=== PATIENT | male | born 1985 | race Caucasian/White ===

== ENCOUNTER 2017-10-02 14:20 | Inpatient (IN) ==
[2017-10-02] MEDS ORDERED: PANTOPRAZOLE 40 MG VIAL IV STA (15:01)
[2017-10-02 15:30] LABS: Basophils # 0.1 10*3/uL (0.0-0.2); Basophils % 0.9 % (0.0-0.8); Eosinophils # 0.1 10*3/uL (0.0-0.87); Eosinophils % 1.3 % (0.00-10.9); Hematocrit 43.9 VOL% (42.0-52.0); Hemoglobin 14.8 GM/DL (14.0-18.0); Immature Granulocytes % 0.2 %; Immature Granulocytes Absolute 0.02 #; Lymphocytes # 2.7 10*3/uL (1.4-4.0); Lymphocytes % 27.4 % (21.2-54.2); Mean Corpuscular HGB Conc 33.7 GM/DL (32-36); Mean Corpuscular Hemoglobin 34 PG (27-34); Mean Platelet Volume 10.3 FL (9.6-12.0); Monocytes # 0.6 10*3/uL (0.11-0.8); Monocytes % 5.8 % (1.7-12.7); Neutrophils # 6.3 10*3/uL (1.4-7.4); Neutrophils % 64.4 % (38.7-73.9); Platelet Count 252 T/CUMM (130-400); Red Blood Count 4.39 MC/CUMM (3.8-5.5); Red Cell Distribution Width 13.5 % (9.3-17.3); White Blood Count 9.7 T/CUMM (4-12)
[2017-10-02 15:47] LABS: Alanine Aminotransferase 30 U/L (16-61); Albumin 3.3 G/DL (3.4-5.0); Alkaline Phosphatase 69 U/L (45-117); Aspartate Amino Transferase 25 U/L (0-37); Bilirubin,Total < 0.39 MG/DL (0.2-1.0); Blood Urea Nitrogen 11 MG/DL (7-18); Calcium 8.9 MG/DL (8.5-10.1); Glucose 127 MG/DL (74-106); Osmolality,Calculated 277.5 MOS/KG (273-304); Potassium 4.1 MMOL/L (3.5-5.1); Sodium 139 MMOL/L (136-145); Total Protein 7.4 G/DL (6.4-8.3)
[2017-10-02] MEDS ORDERED: ACETAMINOPHEN 325 MG TABLET PO PRN (16:20)
[2017-10-02] MEDS ORDERED: ONDANSETRON 4 MG/2 ML VIAL IV PRN (16:20)
[2017-10-02] MEDS: metFORMIN 500 MG TABLET PO SCH (18:11)
[2017-10-02] MEDS: ATORVASTATIN 10 MG TABLET PO SCH (20:44)
[2017-10-02] MEDS: SELENIUM 200 MCG TABLET PO SCH (20:44)
[2017-10-02] MEDS: DOCUSATE SODIUM 100 MG CAPSULE PO SCH (20:44)
[2017-10-02] MEDS: ALLOPURINOL 100 MG TABLET PO SCH (20:44)
[2017-10-02] MEDS: MONTELUKAST 10 MG TABLET PO SCH (20:44)
[2017-10-03 05:08] LABS: Basophils # 0.1 10*3/uL (0.0-0.2); Eosinophils # 0.1 10*3/uL (0.0-0.87); Eosinophils % 1.3 % (0.00-10.9); Hematocrit 44.8 VOL% (42.0-52.0); Hemoglobin 14.8 GM/DL (14.0-18.0); Immature Granulocytes % 0.5 %; Immature Granulocytes Absolute 0.04 #; Lymphocytes # 2.2 10*3/uL (1.4-4.0); Lymphocytes % 26.3 % (21.2-54.2); Mean Corpuscular Hemoglobin 33 PG (27-34); Mean Corpuscular Volume 100.2 FL (87-102); Mean Platelet Volume 10.6 FL (9.6-12.0); Monocytes # 0.5 10*3/uL (0.11-0.8); Monocytes % 5.5 % (1.7-12.7); Neutrophils # 5.5 10*3/uL (1.4-7.4); Neutrophils % 65.4 % (38.7-73.9); Platelet Count 240 T/CUMM (130-400); Red Blood Count 4.47 MC/CUMM (3.8-5.5); Red Cell Distribution Width 13.6 % (9.3-17.3); White Blood Count 8.4 T/CUMM (4-12)
[2017-10-03] MEDS: LEVOTHYROXINE 150 MCG TABLET PO SCH (05:51)
[2017-10-03 06:37] LABS: Risk Ratio 5.44; Thyroid Stimulating Hormone 2.05 uIU/ml (0.358-3.74); Uric Acid 7.3 MG/DL (3.5-7.2); VLDL CHOLESTEROL 47.6 MG/DL
[2017-10-03] MEDS: PANTOPRAZOLE 40 MG TABLET PO SCH (08:47)
[2017-10-03] MEDS: DOCUSATE SODIUM 100 MG CAPSULE PO SCH ×2 (08:47→21:22)
[2017-10-03] MEDS: HYDROCORTISONE 25 MG SUPP RECTAL SCH ×2 (15:00→21:22)
[2017-10-03] MEDS: metFORMIN 500 MG TABLET PO SCH (17:05)
[2017-10-03] MEDS: ATORVASTATIN 10 MG TABLET PO SCH (21:22)
[2017-10-03] MEDS: SELENIUM 200 MCG TABLET PO SCH (21:22)
[2017-10-03] MEDS: ALLOPURINOL 100 MG TABLET PO SCH (21:22)
[2017-10-03] MEDS: MONTELUKAST 10 MG TABLET PO SCH (21:22)
[2017-10-04 05:15] LABS: Basophils # 0.1 10*3/uL (0.0-0.2); Basophils % 0.8 % (0.0-0.8); Eosinophils # 0.1 10*3/uL (0.0-0.87); Eosinophils % 1.4 % (0.00-10.9); Hematocrit 43.9 VOL% (42.0-52.0); Immature Granulocytes % 0.4 %; Immature Granulocytes Absolute 0.04 #; Lymphocytes # 1.6 10*3/uL (1.4-4.0); Lymphocytes % 18.2 % (21.2-54.2); Mean Corpuscular HGB Conc 34.2 GM/DL (32-36); Mean Corpuscular Hemoglobin 33 PG (27-34); Mean Corpuscular Volume 97.1 FL (87-102); Mean Platelet Volume 10.3 FL (9.6-12.0); Monocytes # 0.6 10*3/uL (0.11-0.8); Monocytes % 6.2 % (1.7-12.7); Neutrophils # 6.6 10*3/uL (1.4-7.4); Platelet Count 240 T/CUMM (130-400); Red Blood Count 4.52 MC/CUMM (3.8-5.5); Red Cell Distribution Width 13.5 % (9.3-17.3)
[2017-10-04] MEDS: LEVOTHYROXINE 150 MCG TABLET PO SCH (06:28)
[2017-10-04] MEDS: DOCUSATE SODIUM 100 MG CAPSULE PO SCH ×2 (08:27→20:23)
[2017-10-04] MEDS: PANTOPRAZOLE 40 MG TABLET PO SCH (08:30)
[2017-10-04] MEDS: HYDROCORTISONE 25 MG SUPP RECTAL SCH ×2 (08:31→20:23)
[2017-10-04] MEDS: metFORMIN 500 MG TABLET PO SCH (17:15)
[2017-10-04] MEDS: ALLOPURINOL 100 MG TABLET PO SCH (20:23)
[2017-10-04] MEDS: MONTELUKAST 10 MG TABLET PO SCH (20:23)
[2017-10-04] MEDS: SELENIUM 200 MCG TABLET PO SCH (20:23)
[2017-10-04] MEDS: ATORVASTATIN 10 MG TABLET PO SCH (20:23)
[2017-10-05 05:38] LABS: Basophils # 0.1 10*3/uL (0.0-0.2); Basophils % 0.8 % (0.0-0.8); Eosinophils # 0.1 10*3/uL (0.0-0.87); Hematocrit 43.5 VOL% (42.0-52.0); Immature Granulocytes % 0.3 %; Immature Granulocytes Absolute 0.03 #; Lymphocytes # 2.2 10*3/uL (1.4-4.0); Lymphocytes % 20.7 % (21.2-54.2); Mean Corpuscular HGB Conc 34.5 GM/DL (32-36); Mean Corpuscular Hemoglobin 33 PG (27-34); Mean Corpuscular Volume 96.9 FL (87-102); Monocytes # 0.5 10*3/uL (0.11-0.8); Monocytes % 4.7 % (1.7-12.7); Neutrophils # 7.8 10*3/uL (1.4-7.4); Neutrophils % 72.5 % (38.7-73.9); Platelet Count 260 T/CUMM (130-400); Red Blood Count 4.49 MC/CUMM (3.8-5.5); Red Cell Distribution Width 13.6 % (9.3-17.3); White Blood Count 10.8 T/CUMM (4-12)
[2017-10-05] MEDS: LEVOTHYROXINE 150 MCG TABLET PO SCH (06:12)
[2017-10-05] MEDS: HYDROCORTISONE 25 MG SUPP RECTAL SCH (08:45)
[2017-10-05] MEDS: DOCUSATE SODIUM 100 MG CAPSULE PO SCH (08:45)
[2017-10-05] MEDS: PANTOPRAZOLE 40 MG TABLET PO SCH (08:45)
[2017-10-05 08:51] VITALS: BP 112/55
== END 2017-10-05 09:46 | disposition home or self-care (01) | DRG 394 ==
LOC: N.ED 14:20 → N.EDINP 16:20 → N.4E 17:33
PROVIDERS: ADMIT Family Medicine; ATTEND Family Medicine

== ENCOUNTER 2018-10-25 18:23 | Inpatient (IN) ==
[2018-10-25] MEDS ORDERED: PANTOPRAZOLE 40 MG VIAL IV STA (18:58)
[2018-10-25] MEDS ORDERED: SODIUM CHLORIDE 0.9% 500 ML IV STA ×2 (18:58→22:06)
[2018-10-25] MEDS ORDERED: ONDANSETRON 4 MG/2 ML VIAL IV STA (18:58)
[2018-10-25 19:37] LABS: Basophils % 0.2 % (0.0-0.8); Eosinophils % 0.2 % (0.00-10.9); Hematocrit 51.9 VOL% (42.0-52.0); Hemoglobin 17.4 GM/DL (14.0-18.0); Immature Granulocytes % 0.4 %; Immature Granulocytes Absolute 0.08 #; Lymphocytes # 0.5 10*3/uL (1.4-4.0); Lymphocytes % 2.8 % (21.2-54.2); Mean Corpuscular HGB Conc 33.5 GM/DL (32-36); Mean Corpuscular Volume 99.2 FL (87-102); Mean Platelet Volume 10.3 FL (9.6-12.0); Neutrophils % 93.4 % (38.7-73.9); Platelet Count 200 T/CUMM (130-400); Red Blood Count 5.23 MC/CUMM (3.8-5.5); Red Cell Distribution Width 13.8 % (9.3-17.3); White Blood Count 17.8 T/CUMM (4-12)
[2018-10-25 19:42] LABS: Apearance,Urine CLEAR (Clear); Bacteria,Urine Occasional /HPF (Few); Bilirubin,Urine Negative (Negative); Blood, Urine Negative (Negative); Glucose,Urine (UA) >=500 mg/dL (Negative); Ketones,Urine 5 mg/dL (Negative); Mucus,Urine Occasional /LPF (Occasional); Nitrite,Urine Negative (Negative); Protein,Urine Negative; RBC,Urine <1 /HPF (0-4); Urine Color Yellow (Yellow); Urine Specific Gravity 1.024 (1.001-1.035); Urine Urobilinogen < 2.0 EU/DL (0.2-1.0); WBC,Urine 1 /HPF (0-6)
[2018-10-25 20:03] LABS: Alanine Aminotransferase 21 U/L (16-61); Albumin 3.7 G/DL (3.4-5.0); Alkaline Phosphatase 83 U/L (45-117); Amylase 29 U/L (25-115); Aspartate Amino Transferase 22 U/L (0-37); Blood Urea Nitrogen 14 MG/DL (7-18); Calcium 8.7 MG/DL (8.5-10.1); Estimated Glom Filtration Rate 93 ML/MIN; Glucose 136 MG/DL (74-106); Osmolality,Calculated 275.8 MOS/KG (273-304); Total Protein 7.7 G/DL (6.4-8.3)
[2018-10-25] MEDS ORDERED: SODIUM CHLORIDE 0.9% 1,000 ML IV STA (20:22)
[2018-10-25] MEDS ORDERED: FUROSEMIDE 20 MG/2 ML VIAL IV STA (20:35)
[2018-10-25] MEDS ORDERED: LEVOFLOXACIN INJ 500 MG in PREMIX 1 EACH IV STA (20:36)
[2018-10-25] MEDS ORDERED: ACETAMINOPHEN 500 MG TABLET PO STA (20:50)
[2018-10-25] MEDS ORDERED: NOREPINEPHRINE 8 MG in SODIUM CHLORIDE 0.9% 242 ML IV PRN (21:43)
[2018-10-25] MEDS ORDERED: NOREPINEPHRINE 4 MG/4 ML VIAL IV ONE (21:44)
[2018-10-25 21:46] LABS: Band Neutrophils 4 % (0-10); Macrocytosis Slight; Platelet Estimate Adequate; Segmented Neutrophils 92 % (50-85); Total Cells Counted 100
[2018-10-25] MEDS ORDERED: VANCOMYCIN 1,000 MG VIAL ONE ×2 (22:44→23:00)
[2018-10-25] MEDS: VANCOMYCIN INJ 2,000 MG in SODIUM CHLORIDE 0.9% 500 ML IV SCH (23:00)
[2018-10-25] MEDS ORDERED: GLUCAGON 1 MG VIAL IM PRN (23:28)
[2018-10-25] MEDS ORDERED: DEXTROSE 50% 25 GM/50 ML VIAL IV PRN (23:28)
[2018-10-25] MEDS: ALBUTEROL/IPRATROPIUM 3 ML NEB RESP TX SCH (23:42)
[2018-10-25] MEDS: SODIUM CHLORIDE 0.9% 1,000 ML IV SCH (23:50)
[2018-10-25] MEDS: INSULIN REGULAR 100 UNIT/ML SUBCUT SCH (23:58)
[2018-10-26] MEDS: ALBUTEROL/IPRATROPIUM 3 ML NEB RESP TX SCH ×6 (03:10→23:48)
[2018-10-26 04:47] LABS: Basophils # 0.1 10*3/uL (0.0-0.2); Basophils % 0.4 % (0.0-0.8); Eosinophils % 0.1 % (0.00-10.9); Hematocrit 47.5 VOL% (42.0-52.0); Hemoglobin 15.3 GM/DL (14.0-18.0); Immature Granulocytes % 0.6 %; Immature Granulocytes Absolute 0.11 #; Lymphocytes # 0.9 10*3/uL (1.4-4.0); Lymphocytes % 4.6 % (21.2-54.2); Mean Corpuscular HGB Conc 32.2 GM/DL (32-36); Mean Corpuscular Volume 100.6 FL (87-102); Mean Platelet Volume 10.6 FL (9.6-12.0); Monocytes % 3.4 % (1.7-12.7); Neutrophils % 90.9 % (38.7-73.9); Platelet Count 210 T/CUMM (130-400); Red Blood Count 4.72 MC/CUMM (3.8-5.5); White Blood Count 18.4 T/CUMM (4-12)
[2018-10-26 05:14] LABS: Band Neutrophils 5 % (0-10); Lymphocytes 3 % (20-55); Segmented Neutrophils 88 % (50-85); Total Cells Counted 100
[2018-10-26 05:15] LABS: Hypochromasia 1+; Platelet Estimate Adequate
[2018-10-26 05:18] LABS: Albumin 2.9 G/DL (3.4-5.0); Bilirubin,Total 0.6 MG/DL (0.2-1.0); Calcium 8.1 MG/DL (8.5-10.1); Osmolality,Calculated 283.3 MOS/KG (273-304); Total Protein 6.9 G/DL (6.4-8.3)
[2018-10-26] MEDS: INSULIN REGULAR 100 UNIT/ML SUBCUT SCH ×3 (05:27→17:28)
[2018-10-26] MEDS: LEVOTHYROXINE 150 MCG TABLET PO SCH (07:05)
[2018-10-26] MEDS: SODIUM CHLORIDE 0.9% 1,000 ML IV SCH ×2 (09:27→15:54)
[2018-10-26] MEDS: FUROSEMIDE 20 MG/2 ML VIAL IV SCH ×2 (09:28→15:55)
[2018-10-26] MEDS: FAMOTIDINE 20 MG/2 ML VIAL IV SCH ×2 (09:29→20:52)
[2018-10-26] MEDS: ENOXAPARIN 40 MG/0.4 ML SYRINGE SUBCUT SCH (09:29)
[2018-10-26] MEDS: SERTRALINE 25 MG TABLET PO SCH (09:29)
[2018-10-26] MEDS: DOCUSATE SODIUM 100 MG CAPSULE PO SCH ×2 (09:29→21:08)
[2018-10-26] MEDS: Empagliflozin [Jardiance] 25 MG PO SCH (10:16)
[2018-10-26] MEDS: VANCOMYCIN INJ 2,000 MG in SODIUM CHLORIDE 0.9% 500 ML IV SCH (11:21)
[2018-10-26] MEDS: ONDANSETRON 4 MG/2 ML VIAL IV PRN ×2 (17:50→22:53)
[2018-10-26] MEDS: LEVOFLOXACIN INJ 750 MG in PREMIX 1 EACH IV SCH (20:50)
[2018-10-26] MEDS: ALLOPURINOL 100 MG TABLET PO SCH (21:09)
[2018-10-26] MEDS: ATORVASTATIN 10 MG TABLET PO SCH (21:09)
[2018-10-27] MEDS: SODIUM CHLORIDE 0.9% 1,000 ML IV SCH ×4 (00:14→23:56)
[2018-10-27] MEDS: VANCOMYCIN INJ 2,000 MG in SODIUM CHLORIDE 0.9% 500 ML IV SCH ×3 (00:14→23:15)
[2018-10-27] MEDS: INSULIN REGULAR 100 UNIT/ML SUBCUT SCH ×4 (00:15→18:31)
[2018-10-27 04:16] LABS: Basophils % 0.4 % (0.0-0.8); Eosinophils % 0.4 % (0.00-10.9); Hematocrit 43.6 VOL% (42.0-52.0); Hemoglobin 14.1 GM/DL (14.0-18.0); Immature Granulocytes % 0.3 %; Immature Granulocytes Absolute 0.03 #; Lymphocytes # 1.2 10*3/uL (1.4-4.0); Lymphocytes % 13.3 % (21.2-54.2); Mean Corpuscular HGB Conc 32.3 GM/DL (32-36); Mean Corpuscular Volume 99.8 FL (87-102); Mean Platelet Volume 10.4 FL (9.6-12.0); Monocytes % 6.1 % (1.7-12.7); Neutrophils % 79.5 % (38.7-73.9); Platelet Count 171 T/CUMM (130-400); Red Blood Count 4.37 MC/CUMM (3.8-5.5); Red Cell Distribution Width 14.2 % (9.3-17.3); White Blood Count 9.2 T/CUMM (4-12)
[2018-10-27] MEDS: ALBUTEROL/IPRATROPIUM 3 ML NEB RESP TX SCH ×6 (04:32→22:20)
[2018-10-27 04:53] LABS: Calcium 7.5 MG/DL (8.5-10.1); Osmolality,Calculated 276.5 MOS/KG (273-304)
[2018-10-27] MEDS: LEVOTHYROXINE 150 MCG TABLET PO SCH (06:41)
[2018-10-27] MEDS: FUROSEMIDE 20 MG/2 ML VIAL IV SCH ×2 (07:49→15:35)
[2018-10-27] MEDS: FAMOTIDINE 20 MG/2 ML VIAL IV SCH ×2 (08:01→20:29)
[2018-10-27] MEDS: DOCUSATE SODIUM 100 MG CAPSULE PO SCH ×2 (08:04→20:27)
[2018-10-27] MEDS: ENOXAPARIN 40 MG/0.4 ML SYRINGE SUBCUT SCH (08:05)
[2018-10-27] MEDS: SERTRALINE 25 MG TABLET PO SCH (08:05)
[2018-10-27] MEDS: Empagliflozin [Jardiance] 25 MG PO SCH (08:05)
[2018-10-27] MEDS ORDERED: POTASSIUM CHLORIDE 20 MEQ TABLET PO ONE (11:39)
[2018-10-27] MEDS: ATORVASTATIN 10 MG TABLET PO SCH (20:29)
[2018-10-27] MEDS: LEVOFLOXACIN INJ 750 MG in PREMIX 1 EACH IV SCH (20:29)
[2018-10-27] MEDS: ALLOPURINOL 100 MG TABLET PO SCH (20:29)
[2018-10-28] MEDS: INSULIN REGULAR 100 UNIT/ML SUBCUT SCH ×4 (00:26→18:13)
[2018-10-28] MEDS: ALBUTEROL/IPRATROPIUM 3 ML NEB RESP TX SCH ×6 (02:06→23:07)
[2018-10-28 05:52] LABS: Basophils % 0.4 % (0.0-0.8); Eosinophils # 0.1 10*3/uL (0.0-0.87); Eosinophils % 0.6 % (0.00-10.9); Hematocrit 43.7 VOL% (42.0-52.0); Hemoglobin 14.4 GM/DL (14.0-18.0); Immature Granulocytes % 0.3 %; Immature Granulocytes Absolute 0.03 #; Lymphocytes # 1.5 10*3/uL (1.4-4.0); Lymphocytes % 15.1 % (21.2-54.2); Mean Corpuscular Volume 100.2 FL (87-102); Mean Platelet Volume 9.7 FL (9.6-12.0); Monocytes % 5.5 % (1.7-12.7); Neutrophils % 78.1 % (38.7-73.9); Platelet Count 170 T/CUMM (130-400); Red Blood Count 4.36 MC/CUMM (3.8-5.5); Red Cell Distribution Width 14.3 % (9.3-17.3)
[2018-10-28 06:09] LABS: Calcium 8.4 MG/DL (8.5-10.1); Osmolality,Calculated 275.5 MOS/KG (273-304)
[2018-10-28] MEDS: LEVOTHYROXINE 150 MCG TABLET PO SCH (06:29)
[2018-10-28] MEDS: SODIUM CHLORIDE 0.9% 1,000 ML IV SCH ×2 (07:56→15:56)
[2018-10-28] MEDS: ENOXAPARIN 40 MG/0.4 ML SYRINGE SUBCUT SCH (08:51)
[2018-10-28] MEDS: FAMOTIDINE 20 MG/2 ML VIAL IV SCH ×2 (08:51→20:07)
[2018-10-28] MEDS: SERTRALINE 25 MG TABLET PO SCH (08:51)
[2018-10-28] MEDS: Empagliflozin [Jardiance] 25 MG PO SCH (08:54)
[2018-10-28] MEDS: DOCUSATE SODIUM 100 MG CAPSULE PO SCH ×2 (08:54→21:16)
[2018-10-28] MEDS: FUROSEMIDE 20 MG/2 ML VIAL IV SCH (09:00)
[2018-10-28] MEDS: VANCOMYCIN INJ 2,000 MG in SODIUM CHLORIDE 0.9% 500 ML IV SCH ×2 (11:37→23:09)
[2018-10-28] MEDS ORDERED: MAGNESIUM SULF RIDER 2 GM in PREMIX 1 EACH IV PRN (13:59)
[2018-10-28] MEDS ORDERED: MAGNESIUM SULF RIDER 4 GM in PREMIX 1 EACH IV PRN (13:59)
[2018-10-28] MEDS: ALLOPURINOL 100 MG TABLET PO SCH (20:07)
[2018-10-28] MEDS: LEVOFLOXACIN INJ 750 MG in PREMIX 1 EACH IV SCH (20:07)
[2018-10-28] MEDS: ATORVASTATIN 10 MG TABLET PO SCH (20:07)
[2018-10-29] MEDS: SODIUM CHLORIDE 0.9% 1,000 ML IV SCH ×4 (00:27→18:10)
[2018-10-29] MEDS: INSULIN REGULAR 100 UNIT/ML SUBCUT SCH ×4 (00:28→18:15)
[2018-10-29] MEDS ORDERED: SODIUM CHLORIDE 0.9% 1,000 ML IV ONE (02:43)
[2018-10-29] MEDS: ALBUTEROL/IPRATROPIUM 3 ML NEB RESP TX SCH ×6 (03:13→23:50)
[2018-10-29] MEDS: LEVOTHYROXINE 150 MCG TABLET PO SCH (05:42)
[2018-10-29] MEDS: DOCUSATE SODIUM 100 MG CAPSULE PO SCH ×2 (09:31→20:25)
[2018-10-29] MEDS: SERTRALINE 25 MG TABLET PO SCH (09:31)
[2018-10-29] MEDS: FAMOTIDINE 20 MG/2 ML VIAL IV SCH ×2 (09:31→20:25)
[2018-10-29] MEDS: ENOXAPARIN 40 MG/0.4 ML SYRINGE SUBCUT SCH (09:33)
[2018-10-29] MEDS: Empagliflozin [Jardiance] 25 MG PO SCH (09:33)
[2018-10-29 10:30] LABS: Basophils % 0.4 % (0.0-0.8); Eosinophils # 0.1 10*3/uL (0.0-0.87); Eosinophils % 0.9 % (0.00-10.9); Hematocrit 43.6 VOL% (42.0-52.0); Immature Granulocytes % 0.2 %; Immature Granulocytes Absolute 0.02 #; Lymphocytes # 1.5 10*3/uL (1.4-4.0); Lymphocytes % 16.9 % (21.2-54.2); Mean Corpuscular HGB Conc 32.1 GM/DL (32-36); Mean Corpuscular Volume 101.2 FL (87-102); Mean Platelet Volume 9.9 FL (9.6-12.0); Monocytes % 4.9 % (1.7-12.7); Neutrophils % 76.7 % (38.7-73.9); Platelet Count 192 T/CUMM (130-400); Red Blood Count 4.31 MC/CUMM (3.8-5.5); Red Cell Distribution Width 14.5 % (9.3-17.3); White Blood Count 8.9 T/CUMM (4-12)
[2018-10-29 10:52] LABS: Calcium 8.7 MG/DL (8.5-10.1); Osmolality,Calculated 280.3 MOS/KG (273-304)
[2018-10-29 10:54] LABS: Band Neutrophils 1 % (0-10); Eosinophils 1 % (0-10); Hypochromasia 1+; Lymphocytes 11 % (20-55); Platelet Estimate Adequate; Segmented Neutrophils 83 % (50-85); Total Cells Counted 100
[2018-10-29] MEDS: VANCOMYCIN INJ 2,000 MG in SODIUM CHLORIDE 0.9% 500 ML IV SCH ×2 (13:43→22:07)
[2018-10-29] MEDS: ALLOPURINOL 100 MG TABLET PO SCH (20:25)
[2018-10-29] MEDS: LEVOFLOXACIN INJ 750 MG in PREMIX 1 EACH IV SCH (20:25)
[2018-10-29] MEDS: ATORVASTATIN 10 MG TABLET PO SCH (20:25)
[2018-10-30] MEDS: INSULIN REGULAR 100 UNIT/ML SUBCUT SCH ×4 (00:58→18:04)
[2018-10-30] MEDS: SODIUM CHLORIDE 0.9% 1,000 ML IV SCH ×3 (01:07→13:19)
[2018-10-30] MEDS: ALBUTEROL/IPRATROPIUM 3 ML NEB RESP TX SCH ×6 (04:07→23:49)
[2018-10-30 04:42] LABS: Basophils # 0.1 10*3/uL (0.0-0.2); Basophils % 0.5 % (0.0-0.8); Eosinophils # 0.2 10*3/uL (0.0-0.87); Eosinophils % 1.5 % (0.00-10.9); Hematocrit 42.4 VOL% (42.0-52.0); Hemoglobin 13.5 GM/DL (14.0-18.0); Immature Granulocytes % 0.3 %; Immature Granulocytes Absolute 0.03 #; Lymphocytes # 1.8 10*3/uL (1.4-4.0); Lymphocytes % 18.4 % (21.2-54.2); Mean Corpuscular HGB Conc 31.8 GM/DL (32-36); Mean Corpuscular Volume 101.7 FL (87-102); Mean Platelet Volume 10.5 FL (9.6-12.0); Monocytes % 4.6 % (1.7-12.7); Neutrophils % 74.7 % (38.7-73.9); Platelet Count 216 T/CUMM (130-400); Red Blood Count 4.17 MC/CUMM (3.8-5.5); Red Cell Distribution Width 14.2 % (9.3-17.3)
[2018-10-30 04:57] LABS: Calcium 8.6 MG/DL (8.5-10.1); Osmolality,Calculated 277.4 MOS/KG (273-304)
[2018-10-30] MEDS: LEVOTHYROXINE 150 MCG TABLET PO SCH (06:20)
[2018-10-30] MEDS: DOCUSATE SODIUM 100 MG CAPSULE PO SCH ×2 (08:38→23:34)
[2018-10-30] MEDS: FAMOTIDINE 20 MG/2 ML VIAL IV SCH ×2 (08:38→23:35)
[2018-10-30] MEDS: Empagliflozin [Jardiance] 25 MG PO SCH (08:38)
[2018-10-30] MEDS: SERTRALINE 25 MG TABLET PO SCH (08:38)
[2018-10-30] MEDS: ENOXAPARIN 40 MG/0.4 ML SYRINGE SUBCUT SCH (08:39)
[2018-10-30] MEDS: VANCOMYCIN INJ 2,000 MG in SODIUM CHLORIDE 0.9% 500 ML IV SCH (11:38)
[2018-10-30] MEDS: LEVOFLOXACIN INJ 750 MG in PREMIX 1 EACH IV SCH (23:35)
[2018-10-30] MEDS: ATORVASTATIN 10 MG TABLET PO SCH (23:35)
[2018-10-30] MEDS: ALLOPURINOL 100 MG TABLET PO SCH (23:36)
[2018-10-31] MEDS: INSULIN REGULAR 100 UNIT/ML SUBCUT SCH ×4 (01:22→17:01)
[2018-10-31] MEDS: SODIUM CHLORIDE 0.9% 1,000 ML IV SCH ×3 (01:24→13:00)
[2018-10-31] MEDS: ALBUTEROL/IPRATROPIUM 3 ML NEB RESP TX SCH ×6 (03:08→21:48)
[2018-10-31] MEDS: ACETAMINOPHEN 325 MG TABLET PO PRN ×2 (03:38→16:19)
[2018-10-31] MEDS: LEVOTHYROXINE 150 MCG TABLET PO SCH (06:37)
[2018-10-31 07:06] LABS: Basophils # 0.1 10*3/uL (0.0-0.2); Basophils % 0.5 % (0.0-0.8); Eosinophils # 0.1 10*3/uL (0.0-0.87); Hematocrit 44.7 VOL% (42.0-52.0); Hemoglobin 14.8 GM/DL (14.0-18.0); Immature Granulocytes % 0.6 %; Immature Granulocytes Absolute 0.07 #; Lymphocytes # 1.7 10*3/uL (1.4-4.0); Lymphocytes % 13.8 % (21.2-54.2); Mean Corpuscular HGB Conc 33.1 GM/DL (32-36); Mean Corpuscular Volume 99.6 FL (87-102); Mean Platelet Volume 9.9 FL (9.6-12.0); Monocytes % 4.2 % (1.7-12.7); Neutrophils % 79.9 % (38.7-73.9); Platelet Count 248 T/CUMM (130-400); Red Blood Count 4.49 MC/CUMM (3.8-5.5); Red Cell Distribution Width 14.1 % (9.3-17.3); White Blood Count 12.4 T/CUMM (4-12)
[2018-10-31 07:36] LABS: Albumin 2.8 G/DL (3.4-5.0); Bilirubin,Direct 0.1 MG/DL (0.0-0.20); Bilirubin,Indirect 0.5 MG/DL (0.0-1.0); Bilirubin,Total 0.6 MG/DL (0.2-1.0); Total Protein 6.6 G/DL (6.4-8.3)
[2018-10-31] MEDS: DOCUSATE SODIUM 100 MG CAPSULE PO SCH ×2 (08:43→22:07)
[2018-10-31] MEDS: Empagliflozin [Jardiance] 25 MG PO SCH (08:43)
[2018-10-31] MEDS: ENOXAPARIN 40 MG/0.4 ML SYRINGE SUBCUT SCH (08:43)
[2018-10-31] MEDS: SERTRALINE 25 MG TABLET PO SCH (08:43)
[2018-10-31] MEDS: FAMOTIDINE 20 MG/2 ML VIAL IV SCH ×2 (08:43→22:06)
[2018-10-31] MEDS: ONDANSETRON 4 MG/2 ML VIAL IV PRN (17:45)
[2018-10-31] MEDS: ATORVASTATIN 10 MG TABLET PO SCH (22:07)
[2018-10-31] MEDS: LEVOFLOXACIN INJ 750 MG in PREMIX 1 EACH IV SCH (22:07)
[2018-10-31] MEDS: ALLOPURINOL 100 MG TABLET PO SCH (22:07)
[2018-11-01] MEDS: SODIUM CHLORIDE 0.9% 1,000 ML IV SCH ×2 (00:46→01:33)
[2018-11-01] MEDS: INSULIN REGULAR 100 UNIT/ML SUBCUT SCH ×2 (01:17→07:09)
[2018-11-01] MEDS: ALBUTEROL/IPRATROPIUM 3 ML NEB RESP TX SCH ×3 (01:31→08:05)
[2018-11-01] MEDS: LEVOTHYROXINE 150 MCG TABLET PO SCH (06:29)
[2018-11-01 08:10] VITALS: BP 112/58
[2018-11-01] MEDS: Empagliflozin [Jardiance] 25 MG PO SCH (09:02)
[2018-11-01] MEDS: SERTRALINE 25 MG TABLET PO SCH (09:02)
[2018-11-01] MEDS: DOCUSATE SODIUM 100 MG CAPSULE PO SCH (09:02)
[2018-11-01] MEDS: ENOXAPARIN 40 MG/0.4 ML SYRINGE SUBCUT SCH (09:02)
[2018-11-01] MEDS: FAMOTIDINE 20 MG/2 ML VIAL IV SCH (09:02)
== END 2018-11-01 09:39 | disposition home or self-care (01) | DRG 871 ==
LOC: N.ED 18:23 → N.EDINP 22:11 → N.ICU 22:35 → N.TELEN 10-30 10:29
PROVIDERS: ADMIT Family Medicine; ATTEND Family Medicine